=== PATIENT | male | born 1935 | race Caucasian/White ===

== ENCOUNTER → 2023-10-07 06:53 | Outpatient (REF) | payer OTHER, SELFPAY | LOC: PAVMRI 06:53 | PROVIDERS: ATTENDING PHYSICIAN Pain Medicine Interventional Pain Medicine; FAMILY PHYSICIAN Family Medicine | DX: M54.16 Radiculopathy, lumbar region (principal) | CPT/HCPCS: 72148 ==

== ENCOUNTER → 2023-11-11 08:13 | Outpatient (REF) | payer OTHER, SELFPAY ==
[2023-11-11 10:17] LABS: % Immature Granulocytes 0.3 % (0-0.5); % Lymphocytes 7.8 % (20.5-51.1); % Neutrophils 89.9 % (42.2-75.2); Absolute Lymphocytes 0.9 10^3/uL (1.2-3.4); Absolute Monocytes 0.2 10^3/uL (0.1-0.6); Absolute Neutrophils 10.3 10^3/uL (1.4-6.5); Hematocrit 43.7 % (39.0-52.0); Hemoglobin 14.3 g/dL (13.0-18.0); Mean Corp Hgb Conc. 32.7 g/dL (33.0-37.0); Mean Corpuscular Hgb 31.6 pg (27.0-31.0); Mean Corpuscular Volume 96.5 fL (80.0-94.0); Mean Platelet Volume 10.7 fL (7.4-10.4); Nucleated Red Blood Cells % 0 % (-); Platelet Count 134 10^3/uL (130-400); Red Blood Cell Count 4.53 10^6/uL (4.70-6.10); Red Cell Dist. Width 11.9 % (11.5-14.5); White Blood Cell Count 11.5 10^3/uL (4.8-10.8)
[2023-11-11 11:12] LABS: ALT (SGPT) 27 U/L (0-50); AST (SGOT) 31 U/L (17-59); Albumin 4.5 g/dl (3.5-5.0); Alkaline Phosphatase 83 U/L (38-126); Blood Urea Nitrogen 28 mg/dl (9-20); Calcium 9.7 mg/dl (8.4-10.2); Carbon Dioxide 25 mmol/L (22-30); Chloride 102 mmol/L (98-107); Glucose 130 mg/dl (70-99); HDL Cholesterol 66 mg/dl; LDL Cholesterol, Calculated 100 mg/dl; Potassium 4.6 mmol/L (3.5-5.1); Sodium 138 mmol/L (135-145); Total Bilirubin 0.6 mg/dl (0.2-1.3); Total Cholesterol 178 mg/dl (50-199); Total Protein 7.3 g/dl (6.3-8.2); Triglyceride 61 mg/dl (10-149); Very Low Density Lipoprotein 12 mg/dl (0-30); eGFR > 60.00
== END ==
LOC: HWLAB 08:13
PROVIDERS: ATTENDING PHYSICIAN Family Medicine
DX: E78.2 Mixed hyperlipidemia (principal); D69.6 Thrombocytopenia, unspecified; N18.31 Chronic kidney disease, stage 3a; I77.1 Stricture of artery; I73.9 Peripheral vascular disease, unspecified; I10 Essential (primary) hypertension
CPT/HCPCS: 36415; 80053; 80061; 85025

== ENCOUNTER → 2023-11-18 09:56 | Outpatient (REF) | payer OTHER, SELFPAY ==
[2023-11-18 12:39] LABS: Urine Albumin Negative (Neg - Trace); Urine Bilirubin Negative (Negative); Urine Character Clear (Clear); Urine Color Yellow; Urine Glucose Negative (Negative); Urine Ketone Negative (Negative); Urine Leukocyte Negative (Negative); Urine Nitrite Negative (Negative); Urine Occult Blood Negative (Negative); Urine Urobilinogen Negative (Neg - 1+)
[2023-11-18 13:03] LABS: Albumin 4.2 g/dl (3.5-5.0); Blood Urea Nitrogen 27 mg/dl (9-20); Calcium 8.9 mg/dl (8.4-10.2); Carbon Dioxide 29 mmol/L (22-30); Chloride 103 mmol/L (98-107); Glucose 97 mg/dl (70-99); Phosphorus 4.1 mg/dl (2.5-4.5); Potassium 5.3 mmol/L (3.5-5.1); Sodium 137 mmol/L (135-145); eGFR > 60.00
[2023-11-18 13:30] LABS: Urine Protein < 5.0 mg/dl
== END ==
LOC: HWLAB 09:56
PROVIDERS: ATTENDING PHYSICIAN Specialist; FAMILY PHYSICIAN Family Medicine
DX: I10 Essential (primary) hypertension (principal); E78.00 Pure hypercholesterolemia, unspecified; E78.5 Hyperlipidemia, unspecified
CPT/HCPCS: 36415; 80069; 81003; 82570; 84156

== ENCOUNTER 2024-02-02 07:28 | Emergency (ER) | payer OTHER, SELFPAY ==
[2024-02-02 07:31] VITALS: BP 140/59
[2024-02-02 07:32] VITALS: BP 140/59
[2024-02-02 07:39] VITALS: BMI 25.1
[2024-02-02 08:00] VITALS: BP 104/89
[2024-02-02 08:00] LABS: % Basophils 0.5 % (0-2); % Eosinophils 0.2 % (0-6); % Immature Granulocytes 0.2 % (0-0.5); % Lymphocytes 15.5 % (20.5-51.1); % Monocytes 14.1 % (1.7-9.3); % Neutrophils 69.5 % (42.2-75.2); Absolute Lymphocytes 0.6 10^3/uL (1.2-3.4); Absolute Monocytes 0.6 10^3/uL (0.1-0.6); Absolute Neutrophils 2.9 10^3/uL (1.4-6.5); Hematocrit 40.1 % (39.0-52.0); Hemoglobin 13.6 g/dL (13.0-18.0); Mean Corp Hgb Conc. 33.9 g/dL (33.0-37.0); Mean Corpuscular Hgb 31.5 pg (27.0-31.0); Mean Corpuscular Volume 92.8 fL (80.0-94.0); Mean Platelet Volume 10.2 fL (7.4-10.4); Nucleated Red Blood Cells % 0 % (-); Platelet Count 99 10^3/uL (130-400); Red Blood Cell Count 4.32 10^6/uL (4.70-6.10); Red Cell Dist. Width 12.4 % (11.5-14.5); White Blood Cell Count 4.1 10^3/uL (4.8-10.8)
[2024-02-02 08:06] LABS: ALT (SGPT) 28 U/L (0-50); AST (SGOT) 43 U/L (17-59); Albumin 4.2 g/dl (3.5-5.0); Alkaline Phosphatase 63 U/L (38-126); Blood Urea Nitrogen 24 mg/dl (9-20); Calcium 8.8 mg/dl (8.4-10.2); Carbon Dioxide 24 mmol/L (22-30); Chloride 102 mmol/L (98-107); Estimated Creatinine Clearance 44 ml/min; Glucose 124 mg/dl (70-99); Potassium 4.7 mmol/L (3.5-5.1); Sodium 139 mmol/L (135-145); Total Bilirubin 0.6 mg/dl (0.2-1.3); Total Protein 6.8 g/dl (6.3-8.2); eGFR > 60.00
--- NOTE | 2024-02-02 08:19 | ED.GENMED ---
History of Present Illness
General
Chief Complaint: Weakness
Source: patient and spouse
Exam Limitations: none
Time Seen by Provider: 02/02/24 07:49
Nursing documentation reviewed up to this point in time: agreed with
History of Present Illness
History of Present Illness:
88-year-old male with past medical history as documented notable for hypertension, hyperlipidemia, CAD status post CABG, vertigo who presents to the ER with his for evaluation of generalized weakness in the setting of COVID infection. Patient
reports that 2 days ago he started with a cough and a fever with a Tmax of 102.5 �F. He checked himself for COVID yesterday and was positive. He says that he picked it up at a large gathering on Thursday where there were multiple positive cases. He
has developed over the past 24 hours severe generalized weakness in addition to cough and fever. Today he got up out of bed and was too weak to stand and fell onto his bottom. He did not hit his head or pass out. Had some trouble getting up on
his own initially but was able to get to his feet; after getting to his feet he felt a bit unsteady. He says he did not sustain any serious injuries from the fall�denies any headache, neck pain, back pain, rib pain, pain in his extremities. He did
not pass out or lose consciousness as above and did not feel lightheaded before falling. He has not had any chest pain, palpitations, shortness of breath. He has not had any diarrhea, vomiting, abdominal pain. He denies any other complaints. He
is vaccinated for COVID.
Past History
Past History
ED Past Medical History: CAD and HTN
ED Past Surgical History: Cardiac and Other
Social History
Tobacco: Non-smoker
Alcohol: None
Drug: None
Personal:
Living: with family
Employment: Retired
Family History
Family History: Hypertension
Review of Systems
Review of Systems
All Other Systems: ROS reviewed and negative except as documented in HPI and ROS
Constitutional: Reports fever, fatigue and chills
EENT: Reports runny nose; Denies sore throat
Respiratory: Reports cough; Denies trouble breathing
Cardiac: Denies chest pain, diaphoresis or palpitations
ABD/GI: Denies abdominal pain, nausea or vomiting
: Denies flank pain
Musculoskeletal: Denies neck pain or back pain
Neurological: Reports weakness (Generalized); Denies dizzy or headache
Phy Exam
Physical Exam
Physical Exam:
General: Awake, alert, oriented x3; no acute distress
Head: Normocephalic, atraumatic
Eyes: Conjunctiva normal, EOMI with no nystagmus
Throat: Airway intact, slightly dry mucous membranes
Neck: Trachea midline, no cervical spine tenderness
Back: No signs of trauma the back or flank and no tenderness in thoracic or lumbar spine
Lungs: Clear to auscultation bilaterally, no wheezing, rales, rhonchi
Heart: Regular rate and rhythm, no murmurs, gallops, or rubs
Abd: Soft, non distended, nontender
Neuro: No gross deficits, no focal weakness
Skin: no rash, no lacerations or abrasions
Extremities: Atraumatic, no edema in extremities, equal pulses in all extremities
Scores
Heart Failure Risk
Heart Failure Risk Score: Not Applicable
Heart Score for Chest Pain Patients
STEMI patient?: Not applicable
Withdrawal Assessment of Alcohol
Withdrawal Assessment Completed?: Not applicable
Sepsis
Sepsis Screening
Sepsis Assessment: Sepsis Ruled Out
Sepsis Screen
Sepsis Screen: Sepsis Ruled Out
Date: 02/04/24
Time: 15:11
Course
Orders/Labs/Results
Orders:
Orders
02/02/24 07:42
CMP [Comprehensive Metabolic Panel] Urgent
Complete Blood Count/With Diff Urgent
02/02/24 08:18
Electrocardiogram (*1) Urgent
Reason for Study: Fatigue / Weakness
EKG- Treatment ONCE
0.9% Sodium Chloride 1000 ml [Nss] 1,000 ml IV BOLUS
Acetaminophen [Tylenol] 1,000 mg PO NOW STA
CR Chest - 2 Views Urgent
Comment:
Reason For Exam: COVID+, weakness
02/02/24 11:50
Pt Eval And Treat Urgent
Activity Level: Ambulate
Abnormal Lab Results
02/02/24
07:42
WBC 4.1 L 10^3/uL
(4.8-10.8)
RBC 4.32 L 10^6/uL
(4.70-6.10)
MCH 31.5 H pg
(27.0-31.0)
Plt Count 99 L 10^3/uL
(130-400)
Absolute Lymphs (auto) 0.6 L 10^3/uL
(1.2-3.4)
Lymphocytes % 15.5 L %
(20.5-51.1)
Monocytes % 14.1 H %
(1.7-9.3)
BUN 24 H mg/dl
(9-20)
Glucose 124 H mg/dl
(70-99)
02/02/24 07:42
02/02/24 07:42
Vital Signs
Temp: 37.2 C
Initial and Last Documented VS:
Initial Vital Signs
BP
140/59
02/02/24 07:31
Last Documented Vital Signs
Temp Pulse Resp BP Pulse Ox
37.2 C 60 18 111/48 93
02/02/24 11:51 02/02/24 10:45 02/02/24 10:45 02/02/24 10:42 02/02/24 10:45
MDM/Problems Addressed
Differential Diagnosis Includes:
Weakness: related to viral illness, dehydration, anemia, electrolyte derangement, dysrhythmia
MDM/Problems Addressed:
88-year-old male presents to the emergency room for generalized weakness in the setting of COVID infection. Resulted in a minor fall today, fortunately no serious injuries. Febrile to 39.2 �C here otherwise normal vitals. Physical exam as above.
Will check labs including a CBC and a CMP. Will check chest x-ray. Will check an EKG. Will provide fluids and antipyretic. Although he did have a fall he did not have any head trauma, head appears atraumatic on exam and he denies headache, is
awake and alert with a GCS of 15�no indication for emergent neuroimaging at this point in time. Will monitor closely reassess after the above.
Labs reviewed: CBC and CMP no clinically significant abnormalities. Chest x-ray no acute disease. Patient feeling much better after fluids and Tylenol. Up and ambulatory, PT evaluated, no need for rehab. Patient prefers discharge home.
Requested Paxlovid which we will prescribe. Spoke to him about discontinuing that and while on Paxlovid. Spoke about return precautions all questions answered.
*Radiology
Radiology exam reviewed: preliminary read by ED provider and radiology read reviewed
*Pulse Oximetry
Patient hypoxic: no
*Critical Care Note
Total Time (30-74mins, 75-104mins- exclusive of procedures): Not Applicable
Data Reviewed
Source: patient, spouse and ambulance crew
ED Attending Note
-
Portions of this chart may have been created with voice recognition software.� Occasional wrong word or��sound alike� substitutions may have occurred due to the inherent limitations of voice recognition software.
Discharge Plan
Departure
Patient Disposition: Home (Routine Discharge)
Date of Disposition: 02/02/24
Time of Disposition: 12:52
Patient with high blood pressure during this ER visit?: No
Discharge Problem:
COVID-19
Instructions: COVID-19 ED, Weakness ED
Prescriptions:
New
Paxlovid 300 mg (150 mg x 2)-100 mg tablets,dose pack
See Rx Instructions .ROUTE .COMPLEX Qty: 30 0RF
Rx Instructions:
take TWO 150 mg tablets of nirmatrelvir with ONE 100 mg tablet of ritonavir twice daily for 5 days
No Action
isosorbide mononitrate 30 MG tablet extended release 24 hr
15 mg PO HS
aspirin 81 MG tablet,delayed release (DR/EC)
81 mg PO DAILY
atorvastatin [Lipitor] 10 MG tablet
10 mg PO HS
pantoprazole 40 MG tablet,delayed release (DR/EC)
40 mg PO DAILY
[id number] [Centrum Silver Men] 1 EACH tablet
1 ea PO DAILY
latanoprost 2.5 ML drops
2.5 ml OP HS
acetaminophen [Tylenol Ex Str Arthritis Pain] 500 MG tablet
1,000 mg PO PRN PRN (Reason: back pain)
clopidogrel 75 MG tablet
75 mg PO DAILY Qty: 90 3RF
nitroglycerin 0.4 MG tablet, sublingual
0.4 mg sublingual [id number] PRN (Reason: chest pain) Qty: 25 2RF
Referrals:
UNKNOWN,NO INTERVIEW [Family Provider] -
Activity Restrictions/Additional Instructions:
You were prescribed Paxlovid to treat your COVID infection. You must stop your atorvastatin immediately and you should not take your atorvastatin while you are on Paxlovid and for an additional 5 days after completing your Paxlovid. You can then
resume your statin. You should not take your first dose of Paxlovid until after 8 PM tonight. You should follow-up with your primary doctor within the next week. If you are feeling worse or develop any new symptoms that are concerning to you
should return to the ER.
Thank you for visiting the Emergency Department at [facility].
1. Please schedule a follow up appointment as directed. Call first thing tomorrow morning to make an appointment.
2. If indicated, please take your medications as instructed and indicated on discharge paperwork.
3. If any of your symptoms do not improve, or persist, or become more severe within 6-12 hours, please return to the emergency department for further care.
4. Please return to the emergency department if you develop a headache, neck pain/stiffness, fever greater than 100.4F, chest pain, shortness of breath, persistent nausea, vomiting, slurred speech, difficulty walking, numbness/tingling, weakness,
signs of infection or any other symptoms that are worrisome to you.
Please call [phone] if you have any questions.
Interventions
Interventions:
*Risk Screen - Suicide Last Done: 02/02/24 07:38
*General Assessment Last Done: 02/02/24 07:38
*Neglect/Abuse Screening Last Done: 02/02/24 07:38
*ED COVID-19 Vaccine History Last Done: 02/02/24 07:38
*Nursing Disposition Last Done: 02/02/24 13:12
ED- Cardiac Assessment Last Done: 02/02/24 07:41
ED- Neurological Assessment Last Done: 02/02/24 07:41
ED- Pulmonary Assessment Last Done: 02/02/24 07:41
Discharge Date and Time
Discharge Date/Time: 02/02/24 13:13
Print Language: GREENLANDIC
[2024-02-02] MEDS: TYLENOL 1000 MG PO (08:50)
[2024-02-02] MEDS: NSS 1000 IV (08:51)
[2024-02-02 10:42] VITALS: BP 111/48
[2024-02-02 12:36] VITALS: O2SAT 98
== END 2024-02-02 13:13 | disposition home or self-care (01) ==
LOC: EMR 07:28
PROVIDERS: EMERGENCY PHYSICIAN Emergency Medicine
DX: U07.1 COVID-19 (principal); I10 Essential (primary) hypertension; E78.5 Hyperlipidemia, unspecified; I45.10 Unspecified right bundle-branch block
CPT/HCPCS: 99285; 96360; 96361 ×2; 71046; 80053; 85025; 93005

== ENCOUNTER → 2024-03-04 08:30 | Outpatient (REF) | payer OTHER, SELFPAY ==
[2024-03-04 11:40] LABS: % Basophils 0.6 % (0-2); % Eosinophils 3.4 % (0-6); % Immature Granulocytes 0.2 % (0-0.5); % Lymphocytes 30.1 % (20.5-51.1); % Monocytes 8.3 % (1.7-9.3); % Neutrophils 57.4 % (42.2-75.2); Absolute Eosinophils 0.2 10^3/uL (0-0.7); Absolute Lymphocytes 1.4 10^3/uL (1.2-3.4); Absolute Monocytes 0.4 10^3/uL (0.1-0.6); Absolute Neutrophils 2.7 10^3/uL (1.4-6.5); Hematocrit 39.9 % (39.0-52.0); Hemoglobin 13.2 g/dL (13.0-18.0); Mean Corp Hgb Conc. 33.1 g/dL (33.0-37.0); Mean Corpuscular Hgb 31.1 pg (27.0-31.0); Mean Corpuscular Volume 93.9 fL (80.0-94.0); Mean Platelet Volume 10.5 fL (7.4-10.4); Nucleated Red Blood Cells % 0 % (-); Platelet Count 129 10^3/uL (130-400); Red Blood Cell Count 4.25 10^6/uL (4.70-6.10); Red Cell Dist. Width 12.2 % (11.5-14.5); White Blood Cell Count 4.7 10^3/uL (4.8-10.8)
[2024-03-04 11:43] LABS: ALT (SGPT) 24 U/L (0-50); AST (SGOT) 30 U/L (17-59); Albumin 4.3 g/dl (3.5-5.0); Alkaline Phosphatase 63 U/L (38-126); Blood Urea Nitrogen 25 mg/dl (9-20); Calcium 9.2 mg/dl (8.4-10.2); Carbon Dioxide 29 mmol/L (22-30); Chloride 103 mmol/L (98-107); Glucose 98 mg/dl (70-99); HDL Cholesterol 55 mg/dl; LDL Cholesterol, Calculated 75 mg/dl; Potassium 4.5 mmol/L (3.5-5.1); Sodium 142 mmol/L (135-145); Total Bilirubin 0.7 mg/dl (0.2-1.3); Total Cholesterol 155 mg/dl (50-199); Total Protein 6.9 g/dl (6.3-8.2); Triglyceride 129 mg/dl (10-149); Very Low Density Lipoprotein 25 mg/dl (0-30); eGFR > 60.00
== END ==
LOC: HWLAB 08:30
PROVIDERS: ATTENDING PHYSICIAN Family Medicine
DX: E78.2 Mixed hyperlipidemia (principal); D69.6 Thrombocytopenia, unspecified; N18.31 Chronic kidney disease, stage 3a; I77.1 Stricture of artery; I73.9 Peripheral vascular disease, unspecified; I10 Essential (primary) hypertension
CPT/HCPCS: 36415; 80053; 80061; 85025

== ENCOUNTER → 2024-09-22 12:33 | Outpatient (REF) | payer OTHER, SELFPAY | LOC: HWLAB 12:33 | PROVIDERS: ATTENDING PHYSICIAN Surgery; FAMILY PHYSICIAN Family Medicine | DX: Z12.5 Encounter for screening for malignant neoplasm of prostate (principal) | CPT/HCPCS: 36415; 84153 ==

== ENCOUNTER → 2024-10-13 10:43 | Outpatient (REF) | payer OTHER, SELFPAY ==
[2024-10-13 12:38] LABS: ALT (SGPT) 25 U/L (0-50); AST (SGOT) 28 U/L (17-59); Albumin 4.1 g/dl (3.5-5.0); Alkaline Phosphatase 75 U/L (38-126); Blood Urea Nitrogen 25 mg/dl (9-20); Calcium 8.8 mg/dl (8.4-10.2); Carbon Dioxide 30 mmol/L (22-30); Chloride 107 mmol/L (98-107); Glucose 93 mg/dl (70-99); HDL Cholesterol 48 mg/dl; LDL Cholesterol, Calculated 81 mg/dl; Potassium 4.8 mmol/L (3.5-5.1); Sodium 141 mmol/L (135-145); Total Bilirubin 0.7 mg/dl (0.2-1.3); Total Cholesterol 152 mg/dl (50-199); Total Protein 6.7 g/dl (6.3-8.2); Triglyceride 118 mg/dl (10-149); Very Low Density Lipoprotein 23 mg/dl (0-30); eGFR > 60.00
[2024-10-13 12:43] LABS: % Basophils 0.5 % (0-2); % Eosinophils 3.2 % (0-6); % Immature Granulocytes 0.2 % (0-0.5); % Lymphocytes 26.6 % (20.5-51.1); % Neutrophils 61.5 % (42.2-75.2); Absolute Eosinophils 0.2 10^3/uL (0-0.7); Absolute Lymphocytes 1.5 10^3/uL (1.2-3.4); Absolute Monocytes 0.5 10^3/uL (0.1-0.6); Absolute Neutrophils 3.5 10^3/uL (1.4-6.5); Hematocrit 40.4 % (39.0-52.0); Hemoglobin 13.2 g/dL (13.0-18.0); Mean Corp Hgb Conc. 32.7 g/dL (33.0-37.0); Mean Corpuscular Hgb 31.8 pg (27.0-31.0); Mean Corpuscular Volume 97.3 fL (80.0-94.0); Mean Platelet Volume 10.5 fL (7.4-10.4); Nucleated Red Blood Cells % 0 % (-); Platelet Count 134 10^3/uL (130-400); Red Blood Cell Count 4.15 10^6/uL (4.70-6.10); Red Cell Dist. Width 12.1 % (11.5-14.5); White Blood Cell Count 5.6 10^3/uL (4.8-10.8)
== END ==
LOC: HWLAB 10:43
PROVIDERS: ATTENDING PHYSICIAN Family Medicine
DX: E78.2 Mixed hyperlipidemia (principal); D69.6 Thrombocytopenia, unspecified; N18.31 Chronic kidney disease, stage 3a; I77.1 Stricture of artery; I73.9 Peripheral vascular disease, unspecified; I10 Essential (primary) hypertension
CPT/HCPCS: 36415; 80053; 80061; 85025

== ENCOUNTER 2024-12-03 15:21 | Emergency (ER) | payer OTHER, SELFPAY ==
[2024-12-03 15:27] VITALS: BP 137/64
[2024-12-03 15:59] LABS: Hematocrit 37.0 % (39.0-52.0); Hemoglobin 12.3 g/dL (13.0-18.0); Mean Corp Hgb Conc. 33.2 g/dL (33.0-37.0); Mean Corpuscular Volume 95.1 fL (80.0-94.0); Nucleated Red Blood Cells % 0 % (-); Platelet Count 133 10^3/uL (130-400); Red Cell Dist. Width 12.4 % (11.5-14.5)
--- NOTE | 2024-12-03 16:10 | ED.GENMED ---
History of Present Illness
General
Chief Complaint: Chest Pain
Time Seen by Provider: 12/03/24 16:10
History of Present Illness
History of Present Illness:
TIME OF INITIAL EVALUATION
- 4:15 PM
REVIEW OF OLD RECORDS
- The patient has history of CAD/AR the patient was seen in the emergency department related to COVID-19 in January 2024. In 2020, the patient had a cath that showed multivessel CAD and had 2 drug-eluting stents placed in the proximal mid RCA.
The patient had bypass in 2009.
Note:
CHIEF COMPLAINT(S)
Intermittent chest discomfort since this morning.
HISTORY OF PRESENT ILLNESS
The patient is an 89-year-old male presenting with intermittent chest discomfort that began this morning. The patient describes the pain as mild and lasting for brief periods, approximately 30 seconds at a time, with intervals of 10 to 15 minutes of
being pain-free. The discomfort was noted upon waking and persisted throughout the day. The patient reports having undergone a triple bypass surgery in the past and having several coronary stents, including two carotid stents. The current episode
does not replicate the intensity of pain experienced during previous cardiac events. The discomfort is not exacerbated by exertion as the patient was able to work out this morning without increased symptoms. The patient notes that the episodes have
significantly decreased since arriving at the hospital. There is no associated sweating, dyspnea, or acute distress. The patient last experienced chest pain 10 to 15 minutes prior to this consultation, and the frequency of episodes has decreased
throughout the day.
EXTERNAL RECORDS REVIEWED
The patient recently visited a axle and frame mechanic in [place], [place], where an evaluation, including an electrocardiogram, was conducted. However, no concerns were noted at that time. The patient had undergone a stress test approximately two years ago.
CHRONIC MEDICAL CONDITIONS SIGNIFICANTLY AFFECTING CARE
- Coronary artery disease with history of triple bypass surgery.
- Multiple coronary stents and carotid artery stents.
PHYSICAL EXAM
General: Alert, no acute distress.
Skin: Warm, dry. No evidence of shingles.
Head: Normocephalic, atraumatic.
Neck: Supple, trachea midline.
Eye Ears, nose, mouth and throat: Oral mucosa moist.
Cardiovascular: Normal peripheral perfusion, No edema, history of bypass noted. There is no significant chest wall tenderness
Respiratory: Respirations are non-labored.
Gastrointestinal: Abdomen nondistended.
Back: Normal range of motion, Normal alignment.
Musculoskeletal: Normal ROM, normal strength.
Neurological: Alert and oriented to person, place, time, and situation. No focal neurological deficit observed.
Psychiatric: Cooperative, appropriate mood & affect.
PLAN
- Await results of cardiac blood tests to assess for myocardial injury.
- Consider repeat cardiac enzyme testing if initial results are normal and symptoms persist.
- Evaluate the need for further cardiac workup based on blood test results.
- Evaluate the potential for discharge if cardiac labs return normal and symptoms do not escalate.
DIFFERENTIAL DIAGNOSIS
The Differential Diagnosis includes, in no particular order and is not limited to:
- Angina pectoris
- Acute coronary syndrome
- Gastroesophageal reflux disease
- Costochondritis
- Pulmonary embolism
- Aortic dissection
- Pericarditis
- Anxiety or panic attack
- Myocarditis
- Heart failure
RADIOLOGY
- Hold off on chest x-ray as the pains are only rare and intermittent
EKG
- Sinus 56, normal axis, right bundle branch block (incomplete), nonspecific ST abnormality
LABS
- CBC unremarkable other than mild anemia, chemistries relatively unremarkable
UPDATE
- The patient is very well in appearance. He reports chest pain that only lasts for about 30 seconds at a time intermittently throughout the last 8 hours or so. There is been no exertional component, no shortness of breath, no diaphoresis and
states that his pain does not feel at the time when he had coronary events in the past.
SUMMARY OF ENCOUNTER
The patient, an 89-year-old male, presented to the emergency department with intermittent mild chest discomfort that began earlier in the day. The pain had decreased in frequency since the patients arrival at the hospital. Two sets of cardiac blood
tests were conducted to assess for myocardial injury, both of which returned normal results. Given the negative cardiac testing and lack of escalating symptoms, the decision was made to not admit the patient, considering follow-up with the
outpatient axle and frame mechanic as the next step. Possible non-cardiac sources of the discomfort such as muscular spasm or stress/anxiety were considered.
DISPOSITION
Discharge
ASSESSMENT
The chest discomfort is less likely due to a cardiac cause, given the normal cardiac blood results and decrease in symptoms. Possible non-cardiac causes include muscular spasm or stress-related discomfort.
PLAN
The patient is advised to follow up with their axle and frame mechanic, Dr. Campos Head, in [place] for further evaluation. Monitor symptoms and seek medical care if the discomfort becomes more frequent or intense.
INDEPENDENT REVIEW OF LABS AND INTERPRETATION OF TESTS
My independent review of cardiac blood tests indicates results returned normal.
FOLLOW-UP INSTRUCTIONS
The patient is advised to follow up with their axle and frame mechanic, Dr. Campos Head, for further evaluation and management.
MEDICAL DECISION MAKING
- Number and Complexity of Problems Addressed: Chronic conditions affecting care include coronary artery disease with a history of triple bypass surgery and multiple coronary and carotid artery stents. Differential Diagnosis includes angina
pectoris, acute coronary syndrome, gastroesophageal reflux disease, costochondritis, pulmonary embolism, aortic dissection, pericarditis, anxiety or panic attack, myocarditis, and heart failure.
- Data:
Category 1: Non-emergency department records reviewed include recent evaluation by axle and frame mechanic with normal electrocardiogram. Two cardiac blood tests were ordered and reviewed, both returning normal results.
Category 2: Input from independent historian includes discussion with the patients son, a neurologist, aligning with the decision for a second cardiac test.
- Risk: Consideration of Admission/Observation: Escalation of care was considered due to the patients cardiac history; however, normal lab results, stable symptoms, and a plan for outpatient follow-up support discharge.
DIAGNOSIS
- Chest pain, unspecified (ICD-10: R07.9)
Past History
Past History
ED Past Medical History: CAD and HTN
ED Past Surgical History: Cardiac and Other
Social History
Tobacco: Non-smoker
Alcohol: None
Drug: None
Personal:
Living: with family
Employment: Retired
Family History
Family History: Hypertension
Phy Exam
Physical Exam
Physical Exam:
See HPI
Scores
Heart Score for Chest Pain Patients
STEMI patient?: Not applicable
Course
Orders/Labs/Results
Orders:
Orders
12/03/24 15:22
Electrocardiogram (*1) Urgent
Reason for Study: Chest Pain
EKG- Treatment ONCE
12/03/24 15:38
Complete Blood Count/With Diff Urgent
Comprehensive Metabolic Panel Urgent
Troponin I Urgent
12/03/24 18:12
Troponin I Urgent
Abnormal Lab Results
12/03/24
15:38
RBC 3.89 L 10^6/uL
(4.70-6.10)
Hgb 12.3 L g/dL
(13.0-18.0)
Hct 37.0 L %
(39.0-52.0)
MCV 95.1 H fL
(80.0-94.0)
MCH 31.6 H pg
(27.0-31.0)
BUN 29 H mg/dl
(9-20)
Glucose 110 H mg/dl
(70-99)
12/03/24 15:38
12/03/24 15:38
Vital Signs
Initial and Last Documented VS:
Initial Vital Signs
Temp Pulse Resp BP Pulse Ox
36.8 C 57 18 137/64 96
12/03/24 15:27 12/03/24 15:27 12/03/24 15:27 12/03/24 15:27 12/03/24 15:27
Last Documented Vital Signs
Temp Pulse Resp BP Pulse Ox
36.8 C 50 16 137/64 98
12/03/24 15:27 12/03/24 17:15 12/03/24 17:15 12/03/24 15:27 12/03/24 18:15
*Pulse Oximetry
SaO2: 96
Oxygen Mode of Delivery: Room air
Patient hypoxic: no
*Critical Care Note
Total Time (30-74mins, 75-104mins- exclusive of procedures): Not Applicable
ED Attending Note
-
Portions of this chart may have been created with voice recognition software.� Occasional wrong word or��sound alike� substitutions may have occurred due to the inherent limitations of voice recognition software.
Discharge Plan
Departure
Patient Disposition: Home (Routine Discharge)
Date of Disposition: 12/03/24
Time of Disposition: 19:04
Patient with high blood pressure during this ER visit?: Yes
Discharge Problem:
Chest pain
Instructions: Chest Pain NON-[employer] Follow Up, BLOOD PRESSURE
Prescriptions:
No Action
isosorbide mononitrate 30 MG tablet extended release 24 hr
15 mg PO HS
aspirin 81 MG tablet,delayed release (DR/EC)
81 mg PO DAILY
atorvastatin [Lipitor] 10 MG tablet
10 mg PO HS
pantoprazole 40 MG tablet,delayed release (DR/EC)
40 mg PO DAILY
[id number] [Centrum Silver Men] 1 EACH tablet
1 ea PO DAILY
latanoprost 2.5 ML drops
2.5 ml OP HS
acetaminophen [Tylenol Ex Str Arthritis Pain] 500 MG tablet
1,000 mg PO PRN PRN (Reason: back pain)
clopidogrel 75 MG tablet
75 mg PO DAILY Qty: 90 3RF
nitroglycerin 0.4 MG tablet, sublingual
0.4 mg sublingual [id number] PRN (Reason: chest pain) Qty: 25 2RF
Paxlovid 300 mg (150 mg x 2)-100 mg tablets,dose pack
See Rx Instructions .ROUTE .COMPLEX Qty: 30 0RF
Rx Instructions:
take TWO 150 mg tablets of nirmatrelvir with ONE 100 mg tablet of ritonavir twice daily for 5 days
Referrals:
John Isabel MD [Family Provider, [facility]]
Activity Restrictions/Additional Instructions:
2 cardiac blood test called troponins were both normal. EKG is unremarkable. Return here if worse or other concerns. Follow-up your axle and frame mechanic in [place].
Interventions
Interventions:
*Risk Screen - Suicide Last Done: 12/03/24 15:38
*General Assessment Last Done: 12/03/24 16:30
*Neglect/Abuse Screening Last Done: 12/03/24 15:38
*ED- Fall Risk Assessment Last Done: 12/03/24 16:30
*ED COVID-19 Vaccine History Last Done: 12/03/24 16:30
ED- Cardiac Assessment Last Done: 12/03/24 16:30
Discharge Date and Time
Print Language: BELGIAN
[2024-12-03 16:17] LABS: ALT (SGPT) 19 U/L (0-50); AST (SGOT) 24 U/L (17-59); Albumin 4.0 g/dl (3.5-5.0); Alkaline Phosphatase 61 U/L (38-126); Blood Urea Nitrogen 29 mg/dl (9-20); Calcium 8.7 mg/dl (8.4-10.2); Carbon Dioxide 26 mmol/L (22-30); Chloride 106 mmol/L (98-107); Glucose 110 mg/dl (70-99); Potassium 4.2 mmol/L (3.5-5.1); Sodium 139 mmol/L (135-145); Total Protein 6.5 g/dl (6.3-8.2); eGFR > 60.00
[2024-12-03 16:29] LABS: Troponin I < 0.012 ng/ml
[2024-12-03 19:00] LABS: Troponin I < 0.012 ng/ml
[2024-12-03 19:24] VITALS: BP 142/87
== END 2024-12-03 19:25 | disposition home or self-care (01) ==
LOC: EMR 15:21
PROVIDERS: Student in an Organized Health Care Education/Training Program; EMERGENCY PHYSICIAN Emergency Medicine; FAMILY PHYSICIAN Family Medicine
DX: R07.89 Other chest pain (principal); I25.10 Atherosclerotic heart disease of native coronary artery without angina pectoris; I10 Essential (primary) hypertension; I25.2 Old myocardial infarction; Z95.5 Presence of coronary angioplasty implant and graft; Z95.1 Presence of aortocoronary bypass graft
CPT/HCPCS: 99284; 80053; 84484; 85025; 93005